=== PATIENT | female | born 1980 | race Caucasian/White ===

== ENCOUNTER → 2018-05-22 | Outpatient (CLI) | payer OTHER ==
[~2018-05-22] MED LIST: MOTRIN 600600 MG/TAB PO; NEWMANS TOP; NORCO 325 MG-51 TAB PO; PERCOCET 325 MG1 TA2 PO; PRENATAL1 TA1 PO; PRENATAL1 TA7 PO; SPRINTEC 35 MCG1 TAB PO; STOOL SOFTENER100 M2 PO; ULTRAM 50MG TAB50 MG; ZOVIRAX400 MG PO
== END ==
LOC: MC.RAD 07:49
DX: Z12.31 Encounter for screening mammogram for malignant neoplasm of breast (principal); N64.59 Other signs and symptoms in breast
CPT/HCPCS: G0279

== ENCOUNTER → 2020-09-15 | Outpatient (CLI) | payer OTHER | LOC: MC.RAD 09:45 | DX: Z12.31 Encounter for screening mammogram for malignant neoplasm of breast (principal); N64.89 Other specified disorders of breast ==

== ENCOUNTER → 2020-09-23 | Outpatient (CLI) | payer OTHER | LOC: MC.RAD 10:57 | DX: N64.89 Other specified disorders of breast (principal) ==